=== PATIENT | female | born 1935 | race Caucasian/White ===

== ENCOUNTER 2022-10-01 09:15 | Emergency (ER) | payer MEDICARE, MEDICAID, SELFPAY ==
--- NOTE | 2022-10-01 09:17 | XRR_ITS ---
PROCEDURE INFORMATION: Exam: XR Chest Exam date and time: 10/01/2022 9:35 AM Age: 87 years old Clinical indication: Cough and dyspnea; Additional info: Dyspnea/cough TECHNIQUE: Imaging protocol: Radiologic exam of the chest. Views: 1 view. COMPARISON: No relevant prior studies available. FINDINGS: Lungs: There is mildly increased lung markings, which may be secondary to low lung volumes or mild pulmonary congestion. Streaky bibasilar atelectasis. No consolidation. Pleural spaces: Unremarkable. No pleural effusion. No pneumothorax. Heart/Mediastinum: Unremarkable. No cardiomegaly. Bones/joints: Unremarkable. XR/XR chest 1V portable [id number] IMPRESSION: Low lung volumes versus mild pulmonary congestion.
--- NOTE | 2022-10-01 09:23 | ED_ITS ---
HPI - SOB/Dyspnea General: Chief Complaint: Shortness of Breath/Dyspnea Stated Complaint: SOB; COVID + Time Seen by Provider: 10/01/22 09:16 Source: patient Mode of arrival: EMS History of Present Illness: HPI Narrative: 87-year-old female who presents to the emergency room from the correction tested positive for COVID on screening antigen test 2 days ago. She was asymptomatic at the time so we do not have a confirmed onset of symptoms. She is normally on 2 L she is now requiring 4 L and was transferred to the emergency room for further evaluation. Patient is nonverbal and has a Do Not Recussitate. No specific complaints are voiced by her at this time. She has no response to verbal inquiry. MD elicited complaint: shortness of breath and cough Pertinent past history: other (COVID) Onset (ago): day(s) Context: recent illness Timing: constant Severity: mild Exacerbating factors: nothing Relieving factors: nothing Treatment prior to arrival: oxygen Review of Systems General: Reports: ROS unobtainable due to mental status PFSH ED PFSH: Medical History (Updated 10/01/22 @ 12:02 by Tremaine Bella DO) Anemia in chronic kidney disease Bilateral carotid artery stenosis Chronic kidney disease CVA (cerebral vascular accident) Hypertension Hypothyroid Type 2 diabetes mellitus Physical Exam HENMT: COMMON NORMALS: normocephalic, atraumatic and hearing grossly normal bilaterally HEAD & SCALP: normocephalic and atraumatic Resp: COMMON NORMALS: normal respiratory effort, No retractions, No use of accessory muscles and clear to auscultation bilaterally AUSCULTATION: clear to auscultation bilaterally Cardio: COMMON NORMALS: regular rate, regular rhythm and No murmurs present (Cardio) RATE: regular rate RHYTHM: regular rhythm GI: COMMON NORMALS: Soft to palpation and No hepatosplenomegaly present AUSCULTATION: Yes normoactive bowel sounds PALPATION: Yes Soft to palpation, No Tenderness to palpation present (GI), No Guarding due to palpation present (GI) and Yes No hepatosplenomegaly present Extremity: COMMON NORMALS: normal to inspection, capillary refill normal, no clubbing, cyanosis or edema, no calf tenderness and no pedal edema Skin: COMMON NORMALS: no rashes or lesions noted GENERAL SKIN EXAM: no rashes or lesions noted Course Vital Signs: Vital signs: Vital Signs Temperature 99.0 F 10/01/22 09:26 Pulse Rate 87 10/01/22 13:44 Respiratory Rate 21 H 10/01/22 13:44 Blood Pressure 145/81 10/01/22 13:44 Pulse Oximetry 97 10/01/22 13:44 Oxygen Delivery Me thod 10/01/22 13:44 Oxygen Flow Rate 2 10/01/22 13:44 MDM - SOB/Dyspnea Medical Decision Making Patient not a candidate for Paxlovid because of her chronic renal disease. Recommend continued oxygen support add dexamethasone 6 mg daily for 7 days. Additionally treat the incidental finding of cystitis. Discharge back to the correction. She does have chronic kidney disease which is at baseline. Medical Records I reviewed the patient's medical records. Lab Data I reviewed the patient's lab results. 10/01/22 09:43 10/01/22 09:43 Labs/Radiology: Radiology Impressions Chest X-Ray 10/01/22 09:17 IMPRESSION: Low lung volumes versus mild pulmonary congestion. Abdomen/Pelvis CT 10/01/22 10:46 IMPRESSION: No acute intra-abdominal or intrapelvic pathology. COMMENTS: Consistent with the [employer]'s Incidental Findings Committee white paper (J Am Chastity Radiol 2018): Any incidental renal lesion less than 1 cm or classified as too small to characterize, or any incidental cystic renal lesion characterized as simple-appearing, is likely benign. No follow-up imaging is recommended for these lesions per consensus recommendations based on imaging criteria. Laboratory Results WBC 7.7 10^3/uL (4.0-10.0) 10/01/22 09:43 RBC 4.12 10^6/uL (4.1-5.3) 10/01/22 09:43 Hgb 11.8 g/dL (11.5-15.3) 10/01/22 09:43 Hct 39.8 % (37.0-47.0) 10/01/22 09:43 MCV 96.6 fl (81-99) 10/01/22 09:43 MCH 28.6 pg (28.0-34.0) 10/01/22 09:43 MCHC 29.6 g/dL (30.0-36.0) L 10/01/22 09:43 RDW 14.1 % (12.1-15.1) 10/01/22 09:43 Plt Count 275 10^3/cmm (130-400) 10/01/22 09:43 MPV 11.0 fL (7.4-10.4) H 10/01/22 09:43 Neut % (Auto) 69.4 % 10/01/22 09:43 Lymph % (Auto) 22.0 % 10/01/22 09:43 Haakon % (Auto) 7.2 % 10/01/22 09:43 Eos % (Auto) 0.3 % 10/01/22 09:43 Baso % (Auto) 0.7 % 10/01/22 09:43 Neut # (Auto) 5.33 10^3/uL (1.8-7.7) 10/01/22 09:43 Lymph # (Auto) 1.7 10^3/uL (0.8-4.8) 10/01/22 09:43 Haakon # (Auto) 0.6 10^3/uL (0.2-0.9) 10/01/22 09:43 Eos # (Auto) 0.0 10^3/uL (0.0-0.8) 10/01/22 09:43 Baso # (Auto) 0.1 10^3/uL (0.0-0.1) 10/01/22 09:43 Nucleated RBC % (auto) 0 % 10/01/22 09:43 Nucleated RBCs # 0.0 /100WBC 10/01/22 09:43 Sodium 148 mmol/L (136-145) H 10/01/22 09:43 Potassium 3.9 mmol/L (3.5-5.1) 10/01/22 09:43 Chloride 106 mmol/L (98-107) 10/01/22 09:43 Carbon Dioxide 28 mmol/L (22-29) 10/01/22 09:43 Anion Gap 17.9 (5-19) 10/01/22 09:43 BUN 75 mg/dL (8-23) H 10/01/22 09:43 Creatinine 3.2 mg/dL (0.5-0.9) H 10/01/22 09:43 GFR Calculation Not Reportable 10/01/22 09:43 Glucose 120 mg/dL (65-115) H 10/01/22 09:43 Calculated Osmolality 329 mOsm/kg (285-295) H 10/01/22 09:43 Calcium 8.7 mg/dL (8.5-10.5) 10/01/22 09:43 Total Bilirubin 0.2 mg/dL (0.15-1.2) 10/01/22 09:43 AST 22 U/L (0-32) 10/01/22 09:43 ALT 11 U/L (0-33) 10/01/22 09:43 Alkaline Phosphatase 75 U/L (35-105) 10/01/22 09:43 Total Protein 6.9 g/dL (6.6-8.7) 10/01/22 09:43 Albumin 3.1 g/dL (3.5-5.2) L 10/01/22 09:43 Globulin 3.8 g/dL (1.3-4.6) 10/01/22 09:43 Urine Color Straw (Yellow) 10/01/22 09:43 Urine Appearance Cloudy (CLEAR) A 10/01/22 09:43 Urine pH 6 (5-7) 10/01/22 09:43 Ur Specific Allison 1.025 (1.005-1.030) 10/01/22 09:43 Urine Protein 1+ (Negative) H 10/01/22 09:43 Urine Glucose (UA) Norm (Normal) 10/01/22 09:43 Urine Ketones Negative (Negative) 10/01/22 09:43 Urine Blood 2+ (Negative) H 10/01/22 09:43 Urine Nitrate Negative (Negative) 10/01/22 09:43 Urine Bilirubin Neg (Negative) 10/01/22 09:43 Urine Urobilinogen Norm mg/dL (Negative) 10/01/22 09:43 Ur Leukocyte Esterase 2+ (Negative) H 10/01/22 09:43 Urine RBC 5-10 /hpf (0-2) H 10/01/22 09:43 Urine WBC >100 /hpf (0-5) H 10/01/22 09:43 Ur Squamous Epith Cells None /hpf (0-5) 10/01/22 09:43 Amorphous Sediment Not Reportable 10/01/22 09:43 Urine Bacteria 4+ /hpf (NONE) H 10/01/22 09:43 Coronavirus 229E (PCR) Not detected (NOT DETECT) 10/01/22 10:03 SARS-CoV-2 (PCR) Detected (NOT DETECT) A 10/01/22 10:03 Discharge Plan Discharge Patient Disposition: Home Clinical Impression: COVID-19, CKD (chronic kidney disease), Cystitis Condition: Stable Prescriptions: New Macrobid 100 mg capsule 100 mg PO BID 7 Days Qty: 14 0RF Rx Instructions: must administer with a meal/food dexamethasone 6 mg tablet 6 mg PO DAILY Qty: 7 0RF No Action Tylenol 325 mg Tablet 650 mg PO Q6H PRN (Reason: Pain) bumetanide 2 mg Tablet 2 mg PO BID Miralax 17 gram Powder In Packet 17 g PO DAILY aspirin 325 mg Tablet 325 mg PO DAILY metoprolol succinate 50 mg Tablet Extended Release 24 Hr 50 mg PO DAILY Senna-S 8.6-50 mg Tablet 1 tab-cap PO DAILY hydralazine 25 mg Tablet 25 mg PO TID levothyroxine 100 mcg Tablet 100 mcg PO DAILY Refresh Tears 0.5 % Drops 1 drp OPHTHALMIC (EYE) QID Dulcolax (bisacodyl) 10 mg Suppository 10 mg SD DAILY PRN (Reason: Constipation) fluticasone propionate 50 mcg/actuation [place],Suspension 2 spray INTRANASAL DAILY Rx Instructions: administer into each nostril Novolog FlexPen U-100 Insulin 100 unit/mL (3 mL) Insulin Pen See Rx Instructions .ROUTE .COMPLEX Rx Instructions: per sliding scale rosuvastatin 5 mg Tablet 5 mg PO BEDTIME Januvia 25 mg Tablet 25 mg PO DAILY Lantus Solostar U-100 Insulin 100 unit/mL (3 mL) Insulin Pen 18 unit SUBCUT BID Discharge Orders: Discharge ED (Routine); Ordered 10/01/22 Ordered By: Tremaine Bella Discharge Diet: Usual diet Discharge Activity: Increase activity as tolerated Patient Instructions: Opioid Safety, Pain Management Activity Restrictions/Additional Instructions: You were seen today for COVID-19. The test at the correction was positive your chest x-ray did not show any acute infiltrates or significant changes. Because of your chronic kidney disease you are not a candidate for Paxlovid. At this point the only needed treatment will be Decadron 6 mg daily for 7 days and oxygen support. You were additionally found to have a cystitis you are given a single dose of Rocephin in the emergency room recommend you start on Macrobid 1 p.o. twice daily for 7 days. Continue oxygen support to maintain oxygen sats above 92%. Coding Level of Care Code ED Leadership Coach for [facility]
[2022-10-01 09:26] VITALS: BP 139/76; PULSE 95; RESP 18; TEMP 37.2; O2SAT 95
--- NOTE | 2022-10-01 09:38 | ECG_ITS ---
[facility] Test Date: 2022-10-01 Pat Name: Radha Pineda Department: Room: Gender: Female [employer]: : 1935 Requested By: Tremaine Perez Order Number: [id number] Reading MD: Александр Santacruz Measurements Intervals [place] Rate: 84 P: -7 VT: 192 QRS: -28 QRSD: 98 T: 150 QT: 385 QTc: 455 Interpretive Statements SINUS RHYTHM WITH OCCASIONAL SUPRAVENTRICULAR PREMATURE COMPLEXES LEFT VENTRICULAR HYPERTROPHY AND ST-T CHANGE [VOLTAGE CRITERIA PLUS ST/T ABNORMALITY] POSSIBLE ANTEROSEPTAL MYOCARDIAL INFARCTION , OF INDETERMINATE AGE [30 ms Q WAVE IN V1-V4] No previous ECG available for comparison Electronically Signed On 10-02-2022 19:02:25 CDT by Александр Santacruz [id number]
[2022-10-01] MEDS: dexamethasone 10 mg/mL INJ 6 MG IVP (10:01)
[2022-10-01 10:07] LABS: Basophils # 0.1 10^3/uL (0.0-0.1); Basophils % 0.7 %; Eosinophils % 0.3 %; Hematocrit 39.8 % (37.0-47.0); Hemoglobin 11.8 g/dL (11.5-15.3); Lymphocytes # 1.7 10^3/uL (0.8-4.8); Mean Corpuscular HGB Conc 29.6 g/dL (30.0-36.0); Mean Corpuscular Hemoglobin 28.6 pg (28.0-34.0); Mean Corpuscular Volume 96.6 fl (81-99); Monocytes # 0.6 10^3/uL (0.2-0.9); Monocytes % 7.2 %; Neutrophils # 5.33 10^3/uL (1.8-7.7); Neutrophils % 69.4 %; Nucleated Red Blood Cells % 0 %; Platelet Count 275 10^3/cmm (130-400); Red Blood Count 4.12 10^6/uL (4.1-5.3); Red Cell Distribution Width 14.1 % (12.1-15.1); White Blood Count 7.7 10^3/uL (4.0-10.0)
[2022-10-01 10:22] LABS: Urine Appearance Cloudy (CLEAR); Urine Color Straw (Yellow)
[2022-10-01 10:23] LABS: Add Urine Culture? Yes; Add Urine Microscopic? YES; Bacteria Urine 4+ /hpf; Bilirubin Urine Neg (Negative); Blood Urine 2+ (Negative); Glucose Urine UA Norm (Normal); Ketones Urine Negative (Negative); Leukocyte Esterase Urine 2+ (Negative); Nitrate Urine Negative (Negative); Protein Urine 1+ (Negative); Specific Gravity, Urine 1.025 (1.005-1.030); Urobilinogen Urine Norm (Negative); WBC Urine >100 /hpf (0-5); pH Urine 6 (5-7)
[2022-10-01 10:29] LABS: Alanine Aminotransferase 11 U/L (0-33); Albumin Level 3.1 g/dL (3.5-5.2); Alkaline Phosphatase 75 U/L (35-105); Anion Gap 17.9 (5-19); Aspartate Amino Transferase 22 U/L (0-32); Blood Urea Nitrogen 75 mg/dL (8-23); Calcium 8.7 mg/dL (8.5-10.5); Carbon Dioxide 28 mmol/L (22-29); Chloride 106 mmol/L (98-107); Globulin 3.8 g/dL (1.3-4.6); Glucose 120 mg/dL (65-115); Osmolality Calculated 329 mOsm/kg (285-295); Potassium 3.9 mmol/L (3.5-5.1); Sodium 148 mmol/L (136-145); Total Bilirubin 0.2 mg/dL (0.15-1.2); Total Protein 6.9 g/dL (6.6-8.7)
--- NOTE | 2022-10-01 10:46 | CTR_ITS ---
PROCEDURE INFORMATION: Exam: CT Abdomen And Pelvis Without Contrast Exam date and time: 10/01/2022 11:08 AM Age: 87 years old Clinical indication: Abdominal pain; Generalized TECHNIQUE: Imaging protocol: Computed tomography of the abdomen and pelvis without contrast. Radiation optimization: All CT scans at this facility use at least one of these dose optimization techniques: automated exposure control; mA and/or kV adjustment per patient size (includes targeted exams where dose is matched to clinical indication); or iterative reconstruction. REPORTING DATA: Count of CT and Cardiac NM exams in prior 12 months: This patient has received 0 known CTs and 0 known cardiac nuclear medicine studies in the 12 months prior to the current study. COMPARISON: CR (CHEST, ) 10/01/2022 9:35 AM RADIATION DOSE METRICS: Total DLP (mGy-cm): 978.19 FINDINGS: Lungs: Streaky bibasilar atelectasis noted. No consolidation. Heart: Mildly enlarged heart. Coronary atherosclerotic calcifications seen. No pericardial effusion. Liver: Normal. No mass. Gallbladder and bile ducts: Normal. No calcified stones. No ductal dilation. Pancreas: Normal. No ductal dilation. Spleen: There is tiny calcific densities scattered throughout the spleen, likely sequela of previous granulomatous disease. The spleen is otherwise unremarkable. Adrenal glands: Normal. No mass. Kidneys and ureters: Bilateral renal vascular calcifications seen. There is a 2 mm nonobstructing stone in the right renal pelvis. No hydronephrosis. Right kidney cyst measuring 1.6 cm noted. Nonspecific mild stranding of the perirenal fat bilaterally. Stomach and bowel: There is diverticulosis without evidence of diverticulitis. Appendix: No evidence of appendicitis. Intraperitoneal space: Unremarkable. No free air. No significant fluid collection. Vasculature: Severe diffuse atherosclerotic disease is present. Lymph nodes: Unremarkable. No enlarged lymph nodes. Urinary bladder: Unremarkable as visualized. Reproductive: The uterus is surgically absent. Fluid is seen within the vaginal canal. Bones/joints: Degenerative changes of the spine seen. Soft tissues: Unremarkable. CT/CT abdomen pelvis wo con [id number] IMPRESSION: No acute intra-abdominal or intrapelvic pathology. COMMENTS: Consistent with the [employer]'s Incidental Findings Committee white paper (J Am Chastity Radiol 2018): Any incidental renal lesion less than 1 cm or classified as too small to characterize, or any incidental cystic renal lesion characterized as simple-appearing, is likely benign. No follow-up imaging is recommended for these lesions per consensus recommendations based on imaging criteria.
--- NOTE | 2022-10-01 11:06 | PC.NURSE ---
REPORT GIVEN TO [facility].
[2022-10-01] MEDS: cefTRIAXone 1,000 MG in water for injection-sterile 2.1 ML 1 MG IM (11:21)
[2022-10-01] MEDS: sodium chloride 0.9% 1,000 ML 999 ML IV (11:21)
[2022-10-01 11:56] LABS: Adenovirus Not Detected (NOT DETECT); Chlamydia Pneumoniae Not Detected (NOT DETECT); Coronavirus 229E,HKU1,NL63,OC4 Not Detected (NOT DETECT); Human Metapneumovirus Not Detected (NOT DETECT); Human Rhinovirus/Enterovirus Not Detected (NOT DETECT); Influenza A Not Detected (NOT DETECT); Influenza A H1 Not Detected (NOT DETECT); Influenza A H1-2009 Not Detected (NOT DETECT); Influenza A H3 Not Detected (NOT DETECT); Influenza B Not Detected (NOT DETECT); Mycoplasma Pneumoniae Not Detected (NOT DETECT); Parainfluenza Virus Type 1 Not Detected (NOT DETECT); Parainfluenza Virus Type 2 Not Detected (NOT DETECT); Parainfluenza Virus Type 3 Not Detected (NOT DETECT); Parainfluenza Virus Type 4 Not Detected (NOT DETECT); Respiratory Syncytial Virus A Not Detected (NOT DETECT); Respiratory Syncytial Virus B Not Detected (NOT DETECT); SARS-COV-2 Detected (NOT DETECT)
[2022-10-01 13:44] VITALS: BP 145/81; PULSE 87; RESP 21; O2SAT 97
[2022-10-01 15:15] VITALS: BP 142/87; PULSE 86; RESP 17; O2SAT 97
== END 2022-10-01 16:40 | disposition home or self-care (01) ==
PROVIDERS: Emergency Provider Family Medicine
DX: U07.1 COVID-19 (principal); N30.90 Cystitis, unspecified without hematuria; I12.9 Hypertensive chronic kidney disease with stage 1 through stage 4 chronic kidney disease, or unspecified chronic kidney disease; E11.22 Type 2 diabetes mellitus with diabetic chronic kidney disease; N18.9 Chronic kidney disease, unspecified; Z79.82 Long term (current) use of aspirin; Z79.4 Long term (current) use of insulin; Z86.73 Personal history of transient ischemic attack (TIA), and cerebral infarction without residual deficits
CPT/HCPCS: 71045; 74176; 80053; 81001; 85025; 87077; 87086; 87186; 87635; 93005; 96372; 96374; 99285; J0696; J1100; J7030